=== PATIENT | female | born 1980 | race Caucasian/White ===

== ENCOUNTER 2022-11-20 13:28 | Emergency (ER) | payer OTHER ==
[~2022-11-20] VITALS: Ht 167 cm; Wt 75.0 kg
[~2022-11-20 13:28] MED LIST: SULF1TAB35 PO
[2022-11-20 13:35] VITALS: BP 103/69
[2022-11-20] MEDS ORDERED: morphine INJ 10 MG/ML 1ML (SYR OR VIAL) IVP STA (13:41)
--- NOTE | 2022-11-20 13:41 | ED Abdominal Pain ---
General Chief Complaint: Abdominal/GI Problems Stated Complaint: RT SIDE PAIN Source of Information: Patient Exam Limitations: No Limitations History of Present Illness Date Seen by Provider: Nov 20, 2022 Time Seen by Provider: 13:40 Initial Comments Patient is a 42-year-old female who presents to the emergency department for evaluation of acute right upper quadrant pain that began 2 to 3 hours prior to arrival. Patient denies any nausea/vomiting/diarrhea, fever, constipation. She states she has had some mild abdominal bloating for the last few days. Denies any recent abdominal trauma. Denies any urinary symptoms including bloody urine. States her last menses ended 2 days ago. States the pain has been in t he same location and has not moved. She does endorse some radiation through to her back and up into her right posterior shoulder. Allergies and Home Medications Allergies Coded Allergies: No Known Drug Allergies (Unverified , 01/16/10) Patient Home Medication List Home Medication List Reviewed: Yes Oxycodone Hcl (Oxyir Tablet) 5 Mg Tab, 5 MG PO Q6H PRN for PAIN-MODERATE (5-7) Prescribed by: Huy Marshall on 11/20/22 1520 Sulfamethoxazole/Trimethoprim (Bactrim DS) 1 Each Tablet, 1 EACH PO BID Prescribed by: SAMARA CLEMENTE on 01/06/10 0105 Review of Systems Review of Systems Constitutional: no symptoms reported EENTM: No Symptoms Reported Respiratory: No Symptoms Reported Cardiovascular: No Symptoms Reported Gastrointestinal: See HPI Genitourinary: No Symptoms Reported Musculoskeletal: no symptoms reported Skin: no symptoms reported Psychiatric/Neurological: No Symptoms Reported Endocrine: No Symptoms Reported Hematologic/Lymphatic: No Symptoms Reported Past Pzdmkco-Tnzgkp-Lufbzd Hx Patient Social History Tobacco Use?: No Substance use?: No Alcohol Use?: Yes Alcohol Frequency: Once in a while Pt feels they are or have been: No Immunizations Up To Date Influenza Vaccine Up-to-Date: No; Not Current First/Initial COVID19 Vaccinat: YES Second COVID19 Vaccination Mauri: YES Past Medical History Surgery/Hospitalization HX: X4, APPY Physical Exam Vital Signs Vital Signs - First Documented 11/20/22 13:35 Temp 36.7 Pulse 106 Resp 16 B/P (MAP) 103/69 (80) Pulse Ox 100 Capillary Refill : Height/Weight/BMI Height: '" Weight: lbs. oz. kg; BMI Method: General Appearance: WD/WN, no apparent distress HEENT: PERRL/EOMI, normal ENT inspection, TMs normal, pharynx normal Neck: non-tender, full range of motion, supple, normal inspection Respiratory: chest non-tender, lungs clear, normal breath sounds, no respiratory distress, no accessory muscle use Cardiovascular: regular rate, rhythm Gastrointestinal: normal bowel sounds, non tender, soft Extremities: normal range of motion, non-tender, normal inspection Neurologic/Psychiatric: medical doctor II-XII nml as tested, no motor/sensory deficits, alert, normal mood/affect Skin: normal color, warm/dry Progress/Results/Core Measures Results/Orders Lab Results Laboratory Tests Test 11/20/22 13:45 Range/Units White Blood Count 5.2 4.3-11.0 10^3/uL Red Blood Count 4.32 3.80-5.11 10^6/uL Hemoglobin 12.0 11.5-16.0 g/dL Hematocrit 36 35-52 % Mean Corpuscular Volume 84 80-99 fL Mean Corpuscular Hemoglobin 28 25-34 pg Mean Corpuscular Hemoglobin Concent 33 32-36 g/dL Red Cell Distribution Width 13.7 10.0-14.5 % Platelet Count 338 130-400 10^3/uL Mean Platelet Volume 9.0 9.0-12.2 fL Immature Granulocyte % (Auto) 0 % Neutrophils (%) (Auto) 53 42-75 % Lymphocytes (%) (Auto) 35 12-44 % Monocytes (%) (Auto) 9 0-12 % Eosinophils (%) (Auto) 3 0-10 % Basophils (%) (Auto) 1 0-10 % Neutrophils # (Auto) 2.7 1.8-7.8 10^3/uL Lymphocytes # (Auto) 1.8 1.0-4.0 10^3/uL Monocytes # (Auto) 0.4 0.0-1.0 10^3/uL Eosinophils # (Auto) 0.2 0.0-0.3 10^3/uL Basophils # (Auto) 0.0 0.0-0.1 10^3/uL Immature Granulocyte # (Auto) 0.0 0.0-0.1 10^3/uL Sodium Level 136 135-145 MMOL/L Potassium Level 3.8 3.6-5.0 MMOL/L Chloride Level 105 98-107 MMOL/L Carbon Dioxide Level 22 21-32 MMOL/L Anion Gap 9 5-14 MMOL/L Blood Urea Nitrogen 8 7-18 MG/DL Creatinine 0.86 0.60-1.30 MG/DL Estimat Glomerular Filtration Rate 88 BUN/Creatinine Ratio 9 Glucose Level 97 70-105 MG/DL Calcium Level 9.5 8.5-10.1 MG/DL Corrected Calcium 8.5-10.1 MG/DL Total Bilirubin 0.3 0.1-1.0 MG/DL Aspartate Amino Transf (AST/SGOT) 20 5-34 U/L Alanine Aminotransferase (ALT/SGPT) 17 0-55 U/L Alkaline Phosphatase 61 40-136 U/L Total Protein 7.2 6.4-8.2 GM/DL Albumin 4.6 H 3.2-4.5 GM/DL Lipase 23 8-78 U/L My Orders Orders - HUY MARSHALL [employer]PER[employer] Cbc With Automated Diff (11/20/22 13:41) Comprehensive Metabolic Panel (11/20/22 13:41) Iv/Invasive Line Insertion .IV INSERT (11/20/22 13:41) Lipase (11/20/22 13:41) Ct Abdomen/Pelvis W (11/20/22 13:41) Urinalysis (11/20/22 13:41) Morphine Injection (Morphine Injection (11/20/22 13:41) Iohexol Injection (Omnipaque 350 Mg/Ml 1 (11/20/22 14:00) Received Contrast (Hold Metformin- Contr (11/20/22 14:00) Ns (Ivpb) (Sodium Chloride 0.9% Ivpb Bag (11/20/22 14:00) Ketorolac Injection (Toradol Injection) (11/20/22 15:30) Oxycodone Immediate Rel Tablet (Oxyir Ta (11/20/22 15:30) Acetaminophen Tablet/Caplet (Tylenol T (11/20/22 15:30) Medications Given in ED Current Medications Medications Dose Ordered Sig/David Route Start Time Stop Time Status Last Admin Dose Admin Iohexol 100 ml ONCE ONCE IV 11/20/22 14:00 11/20/22 14:08 DC 11/20/22 14:19 80 ML Sodium Chloride 100 ml ONCE ONCE IV 11/20/22 14:00 11/20/22 14:08 DC 11/20/22 14:19 80 ML Vital Signs/I&O 11/20/22 13:35 Temp 36.7 Pulse 106 Resp 16 B/P (MAP) 103/69 (80) Pulse Ox 100 Progress Progress Note : Progress Note Patient is nontoxic and well-hydrated on exam. No adventitious lung sounds or increased work of breathing noted. Patient does have some right upper quadrant abdominal tenderness at the costal margin. No right flank tenderness to palpation or CVA tenderness. Vital signs are reassuring. Patient does appear uncomfortable on exam. Was placed for CBC, CMP, lipase, IV insertion, urinalysis, contrasted CT of the abdomen and pelvis. Patient also given a dose of IV morphine. Differential diagnosis includes biliary colic, cholangitis, cholecystitis, kidney stone. CBC is unremarkable. Specifically there is no leukocytosis or anemia. CMP does not reveal any significant metabolic derangement. Kidney function and liver f unction are all within normal limits. Lipase is not elevated. CT of the abdomen pelvis reveals no acute abnormality. Nonobstructive calculi noted in the left kidney incidentally. Specifically there is no evidence of any cholecystitis, common bile duct dilation, or cholangitis. Biliary colic is a probable etiology of the symptoms. Discussed importance of close follow-up with PCP/general surgery for further evaluation and treatment. Patient will be given a prescription for opioid analgesia. She was told to take scheduled Tylenol in addition to the opioid to maximize pain control. She was also given a prescription for ODT Zofran. Return precautions for urgent symptomology discussed. Patient verbalized understanding. Departure Impression Primary Impression: RUQ abdominal pain Disposition: 01 HOME, SELF-CARE Condition: Stable Departure-Patient Inst. Decision time for Depature: 15:15 Referrals: JAMES HUNT BRETT D DO KIDO, TAKAAKI MD NO,LOCAL PHYSICIAN (PCP) Primary Care Physician Patient Instructions: Abdominal Pain, Adult ED Add. Discharge Instructions: You have been given a prescription for a narcotic pain medication. It is also important to maximize your pain control that you take Tylenol on a scheduled basis. You may take 2 regular strength Tylenol (650 mg) every 6 hours or 2 extra strength Tylenol (1000 mg) every 8 hours. You have also been given contact information for local general surgeons. It is important you follow-up to see if any further testing or evaluation is necessary. All discharge instructions reviewed with patient and/or family. Voiced understanding. Scripts Ondansetron (Ondansetron Odt) 4 Mg Tab.rapdis 4 MG SL Q4H PRN for NAUSEA/VOMITING for 3 Days, #18 TAB 0 Refills Prov: HUY MARSHALL APRN 11/20/22 Oxycodone Hcl (OXYIR TABLET) 5 Mg Tab 5 MG PO Q6H PRN for PAIN-MODERATE (5-7) for 3 Days, #12 TAB 0 Refills Prov: HUY MARSHALL APRN 11/20/22 HUY MARSHALL APRN Nov 20, 2022 13:41
[2022-11-20 13:57] LABS: BASOPHILS % (AUTO) 1 % (0-10); EOSINOPHILS # (AUTO) 0.2 10^3/uL (0.0-0.3); EOSINOPHILS % (AUTO) 3 % (0-10); HEMATOCRIT 36 % (35-52); LYMPHOCYTES # (AUTO) 1.8 10^3/uL (1.0-4.0); LYMPHOCYTES % (AUTO) 35 % (12-44); MEAN CORPUSCULAR HEMOGLOBIN 28 pg (25-34); MEAN CORPUSCULAR HGB CONC 33 g/dL (32-36); MEAN CORPUSCULAR VOLUME 84 fL (80-99); MONOCYTES # (AUTO) 0.4 10^3/uL (0.0-1.0); MONOCYTES % (AUTO) 9 % (0-12); NEUTROPHILS # (AUTO) 2.7 10^3/uL (1.8-7.8); NEUTROPHILS % (AUTO) 53 % (42-75); PLATELET COUNT 338 10^3/uL (130-400); WHITE BLOOD COUNT 5.2 10^3/uL (4.3-11.0)
[2022-11-20] MEDS ORDERED: NS 100 ML (IVPB) BAG IV ONE (14:00)
[2022-11-20] MEDS ORDERED: HOLD METFORMIN - RECEIVED CONTRAST 20 ML VIAL IV SCH (14:00)
[2022-11-20] MEDS ORDERED: IOHEXOL 350 MG/ML 100 ML (OMNIPAQUE 350) VIAL IV ONE (14:00)
[2022-11-20 14:10] LABS: ALANINE AMINOTRANSFERASE 17 U/L (0-55); ALBUMIN 4.6 GM/DL (3.2-4.5); ALKALINE PHOSPHATASE 61 U/L (40-136); BILIRUBIN,TOTAL 0.3 MG/DL (0.1-1.0); BUN/CREATININE RATIO 9; CALCIUM 9.5 MG/DL (8.5-10.1); CARBON DIOXIDE 22 MMOL/L (21-32); CHLORIDE 105 MMOL/L (98-107); CREATININE SERUM 0.86 MG/DL (0.60-1.30); GFR ESTIMATED 88; GLUCOSE 97 MG/DL (70-105); LIPASE 23 U/L (8-78); POTASSIUM 3.8 MMOL/L (3.6-5.0); SODIUM 136 MMOL/L (135-145); TOTAL PROTEIN 7.2 GM/DL (6.4-8.2)
--- NOTE | 2022-11-20 14:46 | Diagnostic Imaging Report ---
PROCEDURE: CT abdomen and pelvis with contrast. TECHNIQUE: Multiple contiguous axial images were obtained through the abdomen and pelvis after administration of intravenous contrast. Auto Exposure Controls were utilized during the CT exam to meet ALARA standards for radiation dose reduction. All CT scans use one or more of the following dose optimizing techniques: automated exposure control, MA and/or KvP adjustment based on patient size and exam type or iterative reconstruction. INDICATION: Bloating and right-sided pain radiating to the back. COMPARISON: No prior studies are available for comparison. FINDINGS: The lung bases are clear. Liver contains numerous low-attenuation lesions, too small to characterize but most likely cysts. Gallbladder is unremarkable. There is no biliary ductal dilatation. Pancreas and spleen are unremarkable. No adrenal mass is identified. Right kidney contains a small 2 to 3 mm nonobstructing calculus. Left kidney contains a tiny cortical low-attenuation lesion, suggestive of a cyst. No definite ureteral calculi are seen. There is no hydronephrosis. Aorta is nonaneurysmal. Bowel loops appear to be nonobstructed. No free fluid in the abdomen or pelvis is seen. The uterus and ovaries as well as the bladder are unremarkable. No definite inflammatory changes are seen. IMPRESSION: Probable hepatic and renal cysts. There is a small nonobstructing calculus in the right kidney. No definite ureteral calculi or hydronephrosis is detected. Dictated by: Dictated on workstation # [id number]
[2022-11-20] MEDS ORDERED: OXC5T PO (15:19)
[2022-11-20] MEDS ORDERED: ONDA4TAB11 SL (15:30)
[2022-11-20] MEDS ORDERED: KETOROLAC 15 MG/ML VIAL IVP ONE (15:30)
[2022-11-20] MEDS ORDERED: ACETAMINOPHEN 325 MG TABLET PO ONE (15:30)
== END 2022-11-20 15:45 | disposition home or self-care (01) ==
LOC: EDUNIT# 13:28 → ER 13:32
DX: R10.11 Right upper quadrant pain (principal)
CPT/HCPCS: 36415; 74177; 80053; 83690; 85025

== ENCOUNTER → 2022-12-01 | Outpatient (CLI) | payer OTHER ==
[~2022-12-01] MED LIST changes: +ONDA4TAB11 SL; +OXC5T PO
--- NOTE | 2022-12-01 09:42 | Diagnostic Imaging Report ---
PROCEDURE: US Gallbladder. TECHNIQUE: Multiple real-time grayscale images were obtained over the right upper quadrant in various projections. INDICATION: Abdominal pain. Its correlated with the CT performed 11/20/2022. A small partially septated left hepatic lobe cyst measured 2.1 cm in maximal dimension but showed no vascularized or suspicious component and appeared otherwise simple and benign. The gallbladder normal. No stone or sludge. No bile duct dilatation. The pancreas appeared normal. The right kidney 10.4 cm normal in size, cortical thickness and echotexture and is unobstructed. No ascites. No fluid collection. The portal vein patent and showed normal hepatopetal directional flow. IMPRESSION: Incidental left lobe liver cyst, otherwise normal right upper quadrant ultrasound. Dictated by: Dictated on workstation # [id number]
== END ==
LOC: RAD 07:35
PROVIDERS: ATTEND Nurse Practitioner
DX: R10.9 Unspecified abdominal pain (principal)
CPT/HCPCS: 76705

== ENCOUNTER → 2022-12-04 | Outpatient (CLI) | payer OTHER ==
[~2022-12-04] MED LIST changes: +CATHETER FLUSH 10 ML SYR IVP PRN
--- NOTE | 2022-12-04 17:18 | Diagnostic Imaging Report ---
INDICATION: Right upper quadrant abdominal pain. COMPARISON: None. Tc-99m Choletec 5.08 mCi IV followed by 8 ounces of oral Ensure. FINDINGS: The upper abdomen was imaged for 60 minutes with the gamma camera. There is normal appearance of activity in the liver. There is activity in the common duct and gallbladder by 60 minutes. After 60 minutes, the patient received 8 ounces of oral Ensure. After 60 minutes of additional imaging, the gallbladder ejection fraction was calculated to be 23% which is abnormally low. IMPRESSION: 1. Common bile and cystic ducts are patent, but gallbladder ejection fraction is low at 24%. Findings can be seen with gallbladder dyskinesia as well as acalculous cholecystitis. Dictated by: Dictated on workstation # [id number]
== END ==
LOC: CARD 12:00
PROVIDERS: ATTEND Nurse Practitioner
DX: K81.9 Cholecystitis, unspecified (principal); G24.9 Dystonia, unspecified
CPT/HCPCS: 78227; A9537

== ENCOUNTER 2022-12-18 05:37 | Outpatient (CLI) | payer OTHER ==
[~2022-12-18] VITALS: Ht 167.6 cm; Wt 78.0 kg
[~2022-12-18 05:37] MED LIST changes: -CATHETER FLUSH 10 ML SYR IVP PRN
[2022-12-20] MEDS ORDERED: PROM25TA14 PO (12:23)
[2022-12-23] MEDS ORDERED: MTP25TSR PO (16:34)
[2022-12-23] MEDS ORDERED: ALPR0.5T7 PO (16:34)
[2022-12-23] MEDS ORDERED: VITAMIN E (16:34)
[2022-12-23] MEDS ORDERED: ESCI20TA PO (16:34)
[2022-12-23] MEDS ORDERED: BUPR-105 PO (16:34)
[2022-12-25] MEDS ORDERED: TRAM50TA3 PO (11:57)
[2022-12-25] MEDS ORDERED: DOCU-143 PO (11:57)
== END 2022-12-23 16:39 | disposition home or self-care (01) ==
LOC: PREOP 05:37
PROVIDERS: ATTEND Surgery
DX: Z01.818 Encounter for other preprocedural examination (principal)

== ENCOUNTER 2022-12-20 11:11 | Emergency (ER) | payer OTHER ==
[~2022-12-20] VITALS: Ht 167.7 cm; Wt 73.0 kg
[2022-12-20] MEDS ORDERED: NS IV 1000 ML 1,000 ML IV STA (11:31)
--- NOTE | 2022-12-20 11:39 | ED Abdominal Pain ---
General Stated Complaint: N/V, WEAK Source of Information: Patient Exam Limitations: No Limitations History of Present Illness Date Seen by Provider: Dec 20, 2022 Time Seen by Provider: 11:34 Initial Comments Patient is a 42-year-old female with a history of biliary dyskinesia who presents ED with acute onset upper abdominal pain and vomiting. This started about 3 hours ago when she woke up. Pain located to her upper abdomen epigastric and right upper quadrant. She reports a dull constant pain. Started having several episodes of vomiting. She reports clear with yellowish vomit. Patient reports similar pain in the past. Denies excessive vomiting. Patient in moderate distress on arrival. She has Zofran at home but was not able to keep the medication down. She scheduled to have a cholecystectomy by Dr. Sotelo next week. History of and tubal ligation. She not concern for . No current vaginal bleeding, dysuria, hematuria, cough, chest pain, shortness of breath, diarrhea. Patient was seen on November 20 for right upper quadrant abdominal pain found to have a nonobstructing gallstone. Denies of any radiating pain Allergies and Home Medications Allergies Coded Allergies: No Known Drug Allergies (Unverified , 01/16/10) Patient Home Medication List Home Medication List Reviewed: Yes Ondansetron (Ondansetron Odt) 4 Mg Tab.rapdis, 4 MG SL Q4H PRN for NAUSEA/VOMI TING Prescribed by: Huy Marshall on 11/20/22 1530 Oxycodone Hcl (Oxyir Tablet) 5 Mg Tab, 5 MG PO Q6H PRN for PAIN-MODERATE (5-7) Prescribed by: Huy Marshall on 11/20/22 1520 Promethazine HCl (Promethazine Tablet) 25 Mg Tablet, 25 MG PO Q6H PRN for NAUSEA/VOMITING Prescribed by: TESS ONEAL on 12/20/22 1223 Sulfamethoxazole/Trimethoprim (Bactrim DS) 1 Each Tablet, 1 EACH PO BID Prescribed by: SAMARA CLEMENTE on 01/06/10 0105 Review of Systems Review of Systems Constitutional: No chills, No diaphoresis, No malaise, No weakness EENTM: No Double Vision, No Eye Pain, No Ear Pain, No Mouth Pain, No Mouth Swelling, No Throat Pain, No Throat Swelling Respiratory: Denies Cough, Denies Orthopnea Cardiovascular: Denies Chest Pain, Denies Edema Gastrointestinal: Abdominal Pain; Denies Diarrhea; Nausea, Vomiting Genitourinary: Denies Burning, Denies Discharge, Denies Frequency, Denies Flank Pain, Denies Hematuria Musculoskeletal: No back pain, No joint pain Skin: No change in hair/nails Psychiatric/Neurological: Denies Anxiety, Denies Depressed All Other Systems Reviewed Negative Unless Noted: Yes Past Yscjpmq-Tjvxxd-Rukkui Hx Immunizations Up To Date First/Initial COVID19 Vaccinat: YES Second COVID19 Vaccination Mauri: YES Past Medical History Surgery/Hospitalization HX: X4, APPY Physical Exam Vital Signs Vital Signs - First Documented 12/20/22 11:24 Temp 36.3 Pulse 77 Resp 18 B/P (MAP) 107/59 (75) Pulse Ox 99 O2 Delivery Room Air Capillary Refill : Height/Weight/BMI Height: '" Weight: lbs. oz. kg; 26.00 BMI Method: General Appearance: WD/WN, moderate distress, other (Sweaty) HEENT: PERRL/EOMI, normal ENT inspection, TMs normal, pharynx normal Neck: non-tender, full range of motion, supple, normal inspection Respiratory: chest non-tender, lungs clear, normal breath sounds, no respiratory distress, no accessory muscle use Cardiovascular: regular rate, rhythm, no edema, no gallop, no JVD Gastrointestinal: normal bowel sounds, soft, no pulsatile mass, tenderness (Epigastric right upper quadrant tenderness, left upper quadrant tenderness) Extremities: normal range of motion, non-tender, normal inspection, no pedal edema Back: normal inspection, no CVA tenderness, no vertebral tenderness Neurologic/Psychiatric: track sweeper II-XII nml as tested, no motor/sensory deficits, alert, normal mood/affect, oriented x 3 Skin: normal color, warm/dry Progress/Results/Core Measures Results/Orders Lab Results Laboratory Tests Test 12/20/22 11:35 12/20/22 12:11 Range/Units White Blood Count 8.6 4.3-11.0 10^3/uL Red Blood Count 4.98 3.80-5.11 10^6/uL Hemoglobin 13.4 11.5-16.0 g/dL Hematocrit 41 35-52 % Mean Corpuscular Volume 82 80-99 fL Mean Corpuscular Hemoglobin 27 25-34 pg Mean Corpuscular Hemoglobin Concent 33 32-36 g/dL Red Cell Distribution Width 14.7 H 10.0-14.5 % Platelet Count 447 H 130-400 10^3/uL Mean Platelet Volume 9.0 9.0-12.2 fL Immature Granulocyte % (Auto) 0 % Neutrophils (%) (Auto) 80 H 42-75 % Lymphocytes (%) (Auto) 15 12-44 % Monocytes (%) (Auto) 4 0-12 % Eosinophils (%) (Auto) 1 0-10 % Basophils (%) (Auto) 0 0-10 % Neutrophils # (Auto) 6.8 1.8-7.8 10^3/uL Lymphocytes # (Auto) 1.3 1.0-4.0 10^3/uL Monocytes # (Auto) 0.4 0.0-1.0 10^3/uL Eosinophils # (Auto) 0.1 0.0-0.3 10^3/uL Basophils # (Auto) 0.0 0.0-0.1 10^3/uL Immature Granulocyte # (Auto) 0.0 0.0-0.1 10^3/uL Sodium Level 142 135-145 MMOL/L Potassium Level 3.9 3.6-5.0 MMOL/L Chloride Level 110 H 98-107 MMOL/L Carbon Dioxide Level 21 21-32 MMOL/L Anion Gap 11 5-14 MMOL/L Blood Urea Nitrogen 9 7-18 MG/DL Creatinine 0.80 0.60-1.30 MG/DL Estimat Glomerular Filtration Rate 95 BUN/Creatinine Ratio 11 Glucose Level 106 H 70-105 MG/DL Calcium Level 9.4 8.5-10.1 MG/DL Corrected Calcium 8.5-10.1 MG/DL Total Bilirubin 0.3 0.1-1.0 MG/DL Aspartate Amino Transf (AST/SGOT) 12 5-34 U/L Alanine Aminotransferase (ALT/SGPT) 11 0-55 U/L Alkaline Phosphatase 60 40-136 U/L C-Reactive Protein High Sensitivity 0.04 0.00-0.50 MG/DL Total Protein 7.3 6.4-8.2 GM/DL Albumin 4.7 H 3.2-4.5 GM/DL Lipase 19 8-78 U/L Serum Test, Qualitative NEGATIVE NEGATIVE Urine Color YELLOW Urine Clarity CLEAR Urine pH 6.0 5-9 Urine Specific [place] 1.025 H 1.016-1.022 Urine Protein TRACE H NEGATIVE Urine Glucose (UA) NEGATIVE NEGATIVE Urine Ketones NEGATIVE NEGATIVE Urine Nitrite NEGATIVE NEGATIVE Urine Bilirubin NEGATIVE NEGATIVE Urine Urobilinogen 0.2 < = 1.0 MG/DL Urine Leukocyte Esterase NEGATIVE NEGATIVE Urine RBC (Auto) NEGATIVE NEGATIVE Urine RBC NONE /HPF Urine WBC 2-5 /HPF Urine Squamous Epithelial Cells 5-10 /HPF Urine Crystals NONE /LPF Urine Bacteria FEW H /HPF Urine Casts NONE /LPF Urine Mucus SMALL H /LPF Urine Culture Indicated YES My Orders Orders - LUISANA HAHN Cbc With Automated Diff (12/20/22 11:31) Comprehensive Metabolic Panel (12/20/22 11:31) Lipase (12/20/22 11:31) Ua Culture If Indicated (12/20/22 11:31) Hcg,Qualitative Serum (12/20/22 11:31) Ns Iv 1000 Ml (Sodium Chloride 0.9%) (12/20/22 11:31) Ondansetron Injection (Zofran Injectio (12/20/22 11:45) Hs C Reactive Protein (12/20/22 11:32) Morphine Injection (Morphine Injection (12/20/22 11:45) Urine Culture (12/20/22 12:11) Medications Given in ED Current Medications Medications Dose Ordered Sig/David Route Start Time Stop Time Status Last Admin Dose Admin Morphine Sulfate 4 mg ONCE ONCE IVP 12/20/22 11:45 12/20/22 11:46 DC 12/20/22 11:40 4 MG Ondansetron HCl 8 mg ONCE ONCE IVP 12/20/22 11:45 12/20/22 11:46 DC 12/20/22 11:40 8 MG Vital Signs/I&O 12/20/22 12/20/22 11:24 12:57 Temp 36.3 Pulse 77 72 Resp 18 16 B/P (MAP) 107/59 (75) 110/65 Pulse Ox 99 98 O2 Delivery Room Air Room Air Departure Communication (PCP) Reviews previous ER visit, lab test, imaging. November [address] abdomen pelvis that was positive for a nonobstructing gallstone. Scheduled for cholecystectomy next week by Dr. Sotelo. Patient chemistry and hematology on the second was unremarkable. Ultrasound December 01 shows incidental left lobe liver cyst. Otherwise unremarkable. Ejection fraction nucler medicine performed on December 04 shows gallbladder ejection fraction as low as 24%. Patient CBC, CMP was unremarkable. Patient was tolerating fluids. Patient was given IV Zofran and morphine with improvement of pain and nausea. Tolerating p.o. fluids. This appears to be more biliary colic. Discussed patient with Dr. Sotelo who recommended patient calling the office on Thursday to schedule earlier surgery. She scheduled for surgery on . Discussed diet changes avoiding fatty foods, milk, cheese, ice cream ,spicy foods. Continue with Tylenol ibuprofen. She is requesting something different for nausea which I provided Phenergan. Discussed with patient if she starts having vomiting the ODT would work better. She does have Zofran at home. Return precaution were discussed with patient. Reevaluation of the abdomen without any acute abdomen. Imaging was held at this time Differential diagnosis of cholecystitis, cholelithiasis, cholangitis, gastritis, duodenitis, biliary colic. Impression Primary Impression: Biliary dyskinesia Disposition: HOME, SELF-CARE Condition: Stable Departure-Patient Inst. Decision time for Depature: 12:23 Referrals: ALEXANDRA SOTELO,LOCAL PHYSICIAN (PCP) Primary Care Physician Patient Instructions: Gallbladder Diet Scripts Promethazine HCl (Promethazine Tablet) 25 Mg Tablet 25 MG PO Q6H PRN for NAUSEA/VOMITING, #12 TAB Prov: LUISANA HAHN 12/20/22 Work/School Note: Work Release Form Date Seen in the Emergency Department: Dec 20, 2022 Return to Work: Dec 22, 2022 LUISANA HAHN Dec 20, 2022 11:39
[2022-12-20 11:42] LABS: BASOPHILS % (AUTO) 0 % (0-10); EOSINOPHILS # (AUTO) 0.1 10^3/uL (0.0-0.3); EOSINOPHILS % (AUTO) 1 % (0-10); HEMATOCRIT 41 % (35-52); HEMOGLOBIN 13.4 g/dL (11.5-16.0); LYMPHOCYTES # (AUTO) 1.3 10^3/uL (1.0-4.0); LYMPHOCYTES % (AUTO) 15 % (12-44); MEAN CORPUSCULAR HEMOGLOBIN 27 pg (25-34); MEAN CORPUSCULAR HGB CONC 33 g/dL (32-36); MEAN CORPUSCULAR VOLUME 82 fL (80-99); MONOCYTES # (AUTO) 0.4 10^3/uL (0.0-1.0); MONOCYTES % (AUTO) 4 % (0-12); NEUTROPHILS # (AUTO) 6.8 10^3/uL (1.8-7.8); NEUTROPHILS % (AUTO) 80 % (42-75); PLATELET COUNT 447 10^3/uL (130-400); WHITE BLOOD COUNT 8.6 10^3/uL (4.3-11.0)
[2022-12-20] MEDS ORDERED: ONDANSETRON 4 MG/2 ML (SDV) Z0FRAN IVP ONE (11:45)
[2022-12-20] MEDS ORDERED: morphine INJ 10 MG/ML 1ML (SYR OR VIAL) IVP ONE (11:45)
[2022-12-20 11:53] LABS: ALBUMIN 4.7 GM/DL (3.2-4.5); CHLORIDE 110 MMOL/L (98-107); POTASSIUM 3.9 MMOL/L (3.6-5.0); SODIUM 142 MMOL/L (135-145)
[2022-12-20 11:54] LABS: CALCIUM 9.4 MG/DL (8.5-10.1)
[2022-12-20 11:56] LABS: GLUCOSE 106 MG/DL (70-105); TOTAL PROTEIN 7.3 GM/DL (6.4-8.2)
[2022-12-20 11:57] LABS: BILIRUBIN,TOTAL 0.3 MG/DL (0.1-1.0); CARBON DIOXIDE 21 MMOL/L (21-32)
[2022-12-20 11:59] LABS: ALKALINE PHOSPHATASE 60 U/L (40-136); GFR ESTIMATED 95
[2022-12-20 12:00] LABS: BUN/CREATININE RATIO 11
[2022-12-20 12:02] LABS: ALANINE AMINOTRANSFERASE 11 U/L (0-55)
[2022-12-20 12:03] LABS: LIPASE 19 U/L (8-78)
[2022-12-20 12:18] LABS: BILIRUBIN,URINE NEGATIVE (NEGATIVE); CLARITY,URINE CLEAR; COLOR,URINE YELLOW; GLUCOSE, URINE (UA) NEGATIVE (NEGATIVE); KETONES,URINE NEGATIVE (NEGATIVE); LEUKOCYTE ESTERASE ,URINE NEGATIVE (NEGATIVE); NITRITE,URINE NEGATIVE (NEGATIVE); PROTEIN,URINE TRACE (NEGATIVE)
[2022-12-20] MEDS ORDERED: PROM25TA14 PO (12:23)
[2022-12-20 12:26] LABS: BACTERIA,URINE FEW /HPF
[2022-12-20 12:57] VITALS: BP 110/65
== END 2022-12-20 12:58 | disposition home or self-care (01) ==
LOC: EDUNIT# 11:11 → ER 11:13
DX: K82.8 Other specified diseases of gallbladder (principal)
CPT/HCPCS: 36415; 80053; 81000; 83690; 84703; 85025; 86141; 87088; 99282

== ENCOUNTER 2022-12-25 09:21 | Day surgery (SDC) | payer OTHER ==
[2022-12-25] VITALS (10 sets, daily range): BP systolic 98–121; BP diastolic 58–83
[~2022-12-25] VITALS: Ht 167.6 cm; Wt 78.0 kg
[~2022-12-25 09:21] MED LIST changes: +ALPR0.5T7 PO; +BUPR-105 PO; +ESCI20TA PO; +MTP25TSR PO; +PROM25TA14 PO; +VITAMIN E
[2022-12-25] MEDS: LACTATED RINGERS 1,000 ML IV PRN ×2 (09:35→11:17)
[2022-12-25] MEDS ORDERED: ceFAZolin INJECTION 2,000 MG in NS (IVPB) 50 ML IV ONE (09:45)
[2022-12-25] MEDS ORDERED: BUP/EPI 0.5% 1:200,000 (SENSORCAINE) 30 ML VIAL ONE (09:56)
[2022-12-25] MEDS ORDERED: GLYCOPYRROLATE 0.2 MG/ML (ROBINUL) 2 ML VIAL ONE (10:07)
[2022-12-25] MEDS ORDERED: ONDANSETRON 4 MG/2 ML (SDV) Z0FRAN ONE (10:07)
[2022-12-25] MEDS ORDERED: LIDOCAINE PF 2% 5 ML (XYLOCAINE) VIAL ONE (10:07)
[2022-12-25] MEDS ORDERED: fentaNYL INJ 100 MCG/2 ML AMP ONE (10:07)
[2022-12-25] MEDS ORDERED: proPOfol 200 MG/20 ML (DIPRIVAN) VIAL IV ONE (10:07)
[2022-12-25] MEDS ORDERED: MIDAZOLAM 2 MG/2 ML (VERSED) VIAL ONE (10:07)
--- NOTE | 2022-12-25 10:33 | Progress Note-Pre Operative ---
Pre-Operative Progress Note Date H&P Reviewed: Dec 25, 2022 Time H&P Reviewed: 10:33 History & Physical: H&P Reviewed, Patient Examed, No changes noted Pre-Operative Diagnosis: biliary dyskinesia ALEXANDRA SOTELO DO Dec 25, 2022 10:33
[2022-12-25] MEDS ORDERED: BUP/EPI 0.5% 1:200,000 (SENSORCAINE) 30 ML VIAL INJ ONE (10:58)
[2022-12-25] MEDS ORDERED: ROCURONIUM 50 MG/5 ML (ZEMURON) VIAL IV ONE (11:15)
[2022-12-25] MEDS ORDERED: IOHEXOL 300 MG/ML 100 ML (OMNIPAQUE 300) VIAL IV ONE (11:30)
[2022-12-25] MEDS ORDERED: NEOSTIGMINE (BLOXIVERZ ) 1 MG/1ML 10 ML VIAL ONE (11:36)
[2022-12-25] MEDS ORDERED: SEVOFLURANE (ULTANE) 15 ML INHAL SOLN ONE ×2 (11:39→11:40)
[2022-12-25] MEDS ORDERED: ONDANSETRON 4 MG/2 ML (SDV) Z0FRAN IVP PRN (11:45)
[2022-12-25] MEDS ORDERED: HYDROmorphone 2 MG/ML VIAL (DILAUDID) IV ONE (11:45)
[2022-12-25] MEDS ORDERED: morphine INJ 10 MG/ML 1ML (SYR OR VIAL) IVP ONE (11:45)
--- NOTE | 2022-12-25 11:49 | Progress Note-Post Operative ---
Post-Operative Progess Note Surgeon (s)/Song And Dance Performer (s) Surgeon ALEXANDRA SOTELO DO Song And Dance Performer: Dr. Joyner to assist in retraction dissection and closure. Pre-Operative Diagnosis biliary dyskinesia Post-Operative Diagnosis same Procedure & Operative Findings Date of Procedure 12/25/22 Procedure Performed/Findings PROCEDURE: Laparoscopic cholecystectomy with intraoperative cholangiogram. COMPLICATIONS: None. PROCEDURE: The patient was taken to the operating suite and was prepped and draped in sterile fashion. A surgical pause was performed. Just superior to the umbilicus, a 12 mm incision was made. Dissection was taken down to the fascia, which was then scored and grasped with a Delores and the abdomen was then entered. A 0 Vicryl suture was placed in a [id number] fashion and a Che trocar was placed and secured. Pneumoperitoneum was achieved. A 5mm trochar place in the subxyphoid and 2 in the right upper quadrant. The gallbladder was then grasped and elevated. Multiple adhesion to the gallbladder were taken down. The cystic duct, and cystic artery were then dissected out. Clip was placed on the distal portion of the cystic duct which was then partially transected. An arrow catheter was inserted into the duct. The cholangiogram was then performed. No filing defects and contrast made its way into the duodenum. Catheter removed. Clips were placed on proximal portion of the cystic duct and then the duct was then transected. Clips were placed along the proximal and distal portion of the cystic artery which was then transected. Hook cautery was used to dissect the gallbladder from the gallbladder fossa achieving hemostasis. The gallbladder was placed in an Endobag and removed through the 12 mm trocar site. The abdomen was then reinspected. Copious amounts of irrigation were used to irrigate the abdomen and there were no signs of active bleeding. Hemostasis had been achieved. The 12 mm fascial defect was then closed with 0 Vicryl suture that had been placed in a [id number] fashion. The abdomen was then desufflated, the trocars were removed. The abdomen was then washed and dried. The skin was then closed using 4-0 Monocryl in a subcuticular fashion. The abdomen was washed and dried and Skin Affix was place over incisions. Patient tolerated the procedure well without any complications and was taken to the recovery room in stable condition. Anesthesia Type general Estimated Blood Loss Estimated blood loss (mL): minimal Specimens/Packing Specimens Removed gallbladder SOTELO,ALEXANDRA D DO Dec 25, 2022 11:49
[2022-12-25] MEDS ORDERED: TRAM50TA3 PO (11:57)
[2022-12-25] MEDS ORDERED: DOCU-143 PO (11:57)
--- NOTE | 2022-12-25 11:58 | Discharge Inst-Simple/Standard ---
Discharge Inst-Standard Discharge Medications New, Converted or Re-Newed RX: Transmitted to Pharmacy Patient Instructions/Follow Up Plan of Care/Instructions/FU: 2 weeks morgan Activity as Tolerated: No Discharge Diet: Regular Diet Other Inst to Patient Follow up Appt: Make appointment for 2 weeks. Instructions: No lifting greater than 10 pounds. No strenuous activity. May shower in 24 hours, no tub bath or soaking. Use incentive spirometer at home as directed. No Smoking Skin/Wound Care: You have special glue over incision, it will fall off on it's own. Symptoms to Report: Appetite Changes, Extremity Discoloration, Numbness/Tingling, Swelling Increased, Bleeding Excessive, Eyesight Changes, Pain Increased, Urine Color Change, Constipation(Persistent), Fever over 101 degree F, Pain/Pressure in chest, Urinating Difficulty, Cough Up/Vomit Blood, Heart Beat Irreg/Pounding, Pain/Pressure in jaw, Vaginal Bleeding Increase, Cramps in feet or legs, Lightheadedness, Pain/Pressure in shoulder, Diarrhea(Persistent), Memory Changes Suddenly, Questions/Concerns, Weight gain consecutive days, Dizziness/Fainting, Nausea/Vomiting, Shortness of Breath, Weight gain over 2 pounds. If eyes or skin turn yellow notify physician. If questions or concerns contact your physician Or seek help at emergency department. ALEXANDRA SOTELO DO Dec 25, 2022 11:58
--- NOTE | 2022-12-25 13:45 | Diagnostic Imaging Report ---
INDICATION: Cholecystectomy Operative cholangiogram performed in the routine fashion with injection via the cystic duct stump in surgery. 37 views were obtained, 9.6 seconds of fluoroscopy time was used. Intraoperative views demonstrate the biliary tree to be nondilated with no filling defects. Contrast passes to the duodenum without obstruction. IMPRESSION: Unremarkable operative cholangiogram. Dictated by: Dictated on workstation # [id number]
--- NOTE | 2022-12-25 15:36 | Anesthesia-General Post-Op ---
General Patient Condition Mental Status/LOC: Same as Preop Cardiovascular: Satisfactory Nausea/Vomiting: Absent Respiratory: Satisfactory Pain: Controlled Complications: Absent Post Op Complications Complications None Follow Up Care/Instructions Patient Instructions None needed. Anesthesia/Patient Condition Patient Condition Patient was doing well after the procedure with no complaints, stable vital signs, no apparent adverse anesthesia problems. No complications reported per nursing. JELANI JONES DO Dec 25, 2022 15:36
== END 2022-12-25 13:45 ==
LOC: SDC 09:21
PROVIDERS: ATTEND Surgery
DX: K81.1 Chronic cholecystitis (principal); K82.8 Other specified diseases of gallbladder; K66.0 Peritoneal adhesions (postprocedural) (postinfection); Z87.891 Personal history of nicotine dependence
CPT/HCPCS: 76000; 84703; 87081

== ENCOUNTER 2023-03-25 09:47 | Emergency (ER) | payer OTHER ==
[~2023-03-25] VITALS: Ht 167 cm; Wt 70.0 kg
[~2023-03-25 09:47] MED LIST changes: +DOCU-143 PO; +TRAM50TA3 PO
--- NOTE | 2023-03-25 11:23 | ED Cardiac General ---
History of Present Illness General Chief Complaint: Cardiac/General Problems Stated Complaint: INCREASED HEART RATE Nursing Triage Note: ARRIVED VIA AMB FROM WORK WITH ELEVATED HEART RATRE AND LIGHT HEADEDNESS. STATES SHE STARTED A NEW MEDICATION YESTERDAY - PRAZOSIN AND WONDERS IF THAT IS CAUSING HER SX. Source: patient Exam Limitations: no limitations History of Present Illness Date Seen by Provider: Mar 25, 2023 Time Seen by Provider: 11:03 Initial Comments 43-year-old female presents to the ER with reports of tachycardia and dizziness/lightheadedness from 8 AM until when she arrived here. She states that she started a new medication, prazosin, and took the first dose this morning. She was on metoprolol, her provider just switched her from metoprolol to prazosin. She thinks that these symptoms are related to her new medication. She states that her watch read her heart rate in the 160s. She denies any chest pain or shortness of air. She states she is feeling better now. Heart rate is currently in the 80s. Allergies and Home Medications Allergies Coded Allergies: codeine (Verified Allergy, Unknown, ITCHY, 12/23/22) Patient Home Medication List Home Medication List Reviewed: Yes Alprazolam (Alprazolam) 0.5 Mg Tablet, 0.5 MG PO TID, (Reported) Entered as Reported by: ANN-MARIE RODRIGUEZ on 12/23/22 1634 Bupropion HCl (Bupropion HCl Sr) 150 Mg Tablet.er, 300 MG PO DAILY, (Reported) Entered as Reported by: ANN-MARIE RODRIGUEZ on 12/23/22 1634 Docusate Sodium (Colace) 100 Mg Capsule, 100 MG PO BID Prescribed by: ALEXANDRA SOTELO on 12/25/22 1157 Escitalopram Oxalate (Lexapro) 20 Mg Tablet, 20 MG PO DAILY, (Reported) Entered as Reported by: ANN-MARIE RODRIGUEZ on 12/23/22 1634 Metoprolol Succinate (Metoprolol Succinate) 25 Mg Tab.er.24h, PO DAILY, (Reported) Entered as Reported by: ANN-MARIE RODRIGUEZ on 12/23/22 1634 Ondansetron (Ondansetron Odt) 4 Mg Tab.rapdis, 4 MG SL Q4H PRN for NAUSEA/VOMITING Prescribed by: Huy Marshall on 11/20/22 1530 Tramadol HCl (Tramadol HCl) 50 Mg Tablet, 50 MG PO Q6H Prescribed by: ALEXANDRA SOTELO on 12/25/22 1158 [Vitamin E] , (Reported) Entered as Reported by: ANN-MARIE RODRIGUEZ on 12/23/22 1634 Review of Systems Review of Systems Constitutional: see HPI Past Hrdduud-Dmfxvl-Jueahl Hx Patient Social History Tobacco Use?: Yes Tobacco type used: Cigarettes Smoking Status: Current Everyday Smoker Substance use?: No Alcohol Use?: Yes Alcohol Frequency: Rarely Immunizations Up To Date First/Initial COVID19 Vaccinat: 2020 Second COVID19 Vaccination Mauri: 2020 Third COVID19 Vaccination Date: 2020 Seasonal Allergies Seasonal Allergies: Yes Past Medical History Surgery/Hospitalization HX: X4, APPY DEPRESSION, ANXIETY Surgeries: Yes (X4, RUPTURED OVARIAN CYST) Section Respiratory: No Currently Using CPAP: No Currently Using BIPAP: No Cardiac: Yes (MILD ARYTHYMIA) Neurological: Yes Headaches /Migraines Female Reproductive Disorders: Ovarian Cyst Gastrointestinal: No Musculoskeletal: No Endocrine: No HEENT: No Cancer: No Psychosocial: Yes Anxiety, Depression Integumentary: No Blood Disorders: No Physical Exam Vital Signs Vital Signs - First Documented 03/25/23 10:13 Temp 36.0 Pulse 95 Resp 16 B/P (MAP) 109/77 (88) Pulse Ox 97 O2 Delivery Room Air Capillary Refill : Less Than 3 Seconds Height, Weight, BMI Height: '" Weight: lbs. oz. kg; 25.00 BMI Method: General Appearance: No Apparent Distress, WD/WN Neck: Non Tender, Supple Respiratory: Lungs Clear, Normal Breath Sounds, No Accessory Muscle Use, No Respiratory Distress Cardiovascular: Regular Rate, Rhythm Extremity: Normal Inspection, Normal Range of Motion Neurologic/Psychiatric: Alert, Normal Mood/Affect Skin: Normal Color, Warm/Dry Progress/Results/Core Measures Results/Orders Lab Results Laboratory Tests Test 03/25/23 11:30 Range/Units White Blood Count 6.3 4.3-11.0 10^3/uL Red Blood Count 4.00 3.80-5.11 10^6/uL Hemoglobin 11.2 L 11.5-16.0 g/dL Hematocrit 35 35-52 % Mean Corpuscular Volume 87 80-99 fL Mean Corpuscular Hemoglobin 28 25-34 pg Mean Corpuscular Hemoglobin Concent 32 32-36 g/dL Red Cell Distribution Width 14.6 H 10.0-14.5 % Platelet Count 242 130-400 10^3/uL Mean Platelet Volume 9.2 9.0-12.2 fL Immature Granulocyte % (Auto) 0 % Neutrophils (%) (Auto) 65 42-75 % Lymphocytes (%) (Auto) 28 12-44 % Monocytes (%) (Auto) 5 0-12 % Eosinophils (%) (Auto) 2 0-10 % Basophils (%) (Auto) 0 0-10 % Neutrophils # (Auto) 4.1 1.8-7.8 10^3/uL Lymphocytes # (Auto) 1.7 1.0-4.0 10^3/uL Monocytes # (Auto) 0.3 0.0-1.0 10^3/uL Eosinophils # (Auto) 0.1 0.0-0.3 10^3/uL Basophils # (Auto) 0.0 0.0-0.1 10^3/uL Immature Granulocyte # (Auto) 0.0 0.0-0.1 10^3/uL Sodium Level 139 135-145 MMOL/L Potassium Level 3.9 3.6-5.0 MMOL/L Chloride Level 107 98-107 MMOL/L Carbon Dioxide Level 26 21-32 MMOL/L Anion Gap 6 5-14 MMOL/L Blood Urea Nitrogen 10 7-18 MG/DL Creatinine 0.74 0.60-1.30 MG/DL Estimat Glomerular Filtration Rate 104 BUN/Creatinine Ratio 14 Glucose Level 91 70-105 MG/DL Calcium Level 8.8 8.5-10.1 MG/DL Corrected Calcium 8.9 8.5-10.1 MG/DL Magnesium Level 1.6 1.6-2.4 MG/DL Total Bilirubin 0.1 0.1-1.0 MG/DL Aspartate Amino Transf (AST/SGOT) 12 5-34 U/L Alanine Aminotransferase (ALT/SGPT) 13 0-55 U/L Alkaline Phosphatase 63 40-136 U/L Total Protein 5.9 L 6.4-8.2 GM/DL Albumin 3.9 3.2-4.5 GM/DL My Orders Orders - IVAN CHOUDHARY R SYSTEM SAFETY ENGINEER Cbc With Automated Diff (03/25/23 11:17) Magnesium (03/25/23 11:17) Comprehensive Metabolic Panel (03/25/23 11:17) Monitor-Rhythm Ecg Trace Only (03/25/23 11:17) Ed Iv/Invasive Line Start (03/25/23 11:17) Ns Iv 1000 Ml (Sodium Chloride 0.9%) (03/25/23 11:30) Vital Signs/I&O 03/25/23 03/25/23 10:13 12:32 Temp 36.0 Pulse 95 66 Resp 16 16 B/P (MAP) 109/77 (88) 106/73 Pulse Ox 97 98 O2 Delivery Room Air Room Air Blood Pressure Mean: 88 Progress Progress Note : Progress Note Patient seen and evaluated, resting comfortably in bed, no acute distress. Based on exam and symptoms, work-up initiated including CBC, CMP, magnesium. IV fluids ordered. EKG has already been obtained. Labs reviewed. CBC shows slightly decreased hemoglobin 11.2. CMP grossly normal. Magnesium normal 1.6. Total protein slightly low 5.9. Results discussed with patient. Patient reports she is still feeling well. Patient is agreeable to discharge. Patient instructed to follow-up with her provider regarding her new medication. Discharge instructions and return precautions provided. Initial ECG Impression Date: Mar 25, 2023 Initial ECG Impression Time: 10:10 Initial ECG Rate: 101 Initial ECG Rhythm: S.Tach Initial ECG Intervals: Normal Initial ECG Impression: Normal Initial ECG Comparisson: No Previous ECG Available Departure Impression Primary Impression: Tachycardia Additional Impression: Anemia Qualified Codes: D64.9 - Anemia, unspecified Disposition: 01 HOME, SELF-CARE Condition: Stable Departure-Patient Inst. Decision time for Depature: 12:25 Referrals: RYLAN CHANG DO (PCP/Family) Primary Care Physician Patient Instructions: Tachycardia Add. Discharge Instructions: Follow-up with your primary care provider regarding your low hemoglobin. Discuss the medication with the provider who prescribed it. Return for high heart rate, dizziness, chest pain, shortness of breath, or any other new, concerning, or worsening symptoms. All discharge instructions reviewed with patient and/or family. Voiced understanding. Work/School Note: School/Childcare Release, Work Release Form Date Seen in the Emergency Department: Mar 25, 2023 Return to Work: Mar 26, 2023 Restrictions: No Restrictions IVAN CHOUDHARY APRN Mar 25, 2023 11:23
[2023-03-25] MEDS ORDERED: NS IV 1000 ML 1,000 ML IV SCH (11:30)
[2023-03-25 11:39] LABS: BASOPHILS % (AUTO) 0 % (0-10); EOSINOPHILS # (AUTO) 0.1 10^3/uL (0.0-0.3); EOSINOPHILS % (AUTO) 2 % (0-10); HEMATOCRIT 35 % (35-52); HEMOGLOBIN 11.2 g/dL (11.5-16.0); LYMPHOCYTES # (AUTO) 1.7 10^3/uL (1.0-4.0); LYMPHOCYTES % (AUTO) 28 % (12-44); MEAN CORPUSCULAR HEMOGLOBIN 28 pg (25-34); MEAN CORPUSCULAR HGB CONC 32 g/dL (32-36); MEAN CORPUSCULAR VOLUME 87 fL (80-99); MEAN PLATELET VOLUME 9.2 fL (9.0-12.2); MONOCYTES # (AUTO) 0.3 10^3/uL (0.0-1.0); MONOCYTES % (AUTO) 5 % (0-12); NEUTROPHILS # (AUTO) 4.1 10^3/uL (1.8-7.8); NEUTROPHILS % (AUTO) 65 % (42-75); PLATELET COUNT 242 10^3/uL (130-400); WHITE BLOOD COUNT 6.3 10^3/uL (4.3-11.0)
[2023-03-25 11:48] LABS: ALBUMIN 3.9 GM/DL (3.2-4.5); POTASSIUM 3.9 MMOL/L (3.6-5.0)
[2023-03-25 11:49] LABS: CALCIUM 8.8 MG/DL (8.5-10.1)
[2023-03-25 11:50] LABS: TOTAL PROTEIN 5.9 GM/DL (6.4-8.2)
[2023-03-25 11:52] LABS: BILIRUBIN,TOTAL 0.1 MG/DL (0.1-1.0)
[2023-03-25 11:54] LABS: CREATININE SERUM 0.74 MG/DL (0.60-1.30)
[2023-03-25 11:57] LABS: MAGNESIUM 1.6 MG/DL (1.6-2.4)
[2023-03-25 12:32] VITALS: BP 106/73
== END 2023-03-25 12:32 | disposition home or self-care (01) ==
LOC: EDUNIT# 09:47 → ER 09:49
DX: D64.9 Anemia, unspecified (principal); F17.210 Nicotine dependence, cigarettes, uncomplicated
CPT/HCPCS: 36415; 80053; 83735; 85025; 93005; 93041